=== PATIENT | female | born 1950 | race Caucasian/White ===

== ENCOUNTER 2023-09-15 12:56 | Emergency (ER) | payer OTHER, SELFPAY ==
[2023-09-15 12:59] VITALS: BP 178/102
[2023-09-15 13:49] VITALS: BP 163/87
[2023-09-15] MEDS: LR 1000 IV (13:54)
[2023-09-15] MEDS: DILAUDID 0.5 MG IV (13:54)
[2023-09-15] MEDS: ZOFRAN 4 MG IV (13:55)
--- NOTE | 2023-09-15 13:55 | ED.GENMED ---
History of Present Illness
General
Chief Complaint: Abdominal Pain
Time Seen by Provider: 09/15/23 13:19
History of Present Illness
History of Present Illness:
73-year-old female with history of hypertension, hyperlipidemia, and small bowel obstruction presents to the emergency department for right lower quadrant abdominal pain beginning this morning associated with vomiting. She did pass 2 small bowel
movements and a few episodes of gas passage but has not had anything in several hours. Feels comparable to past small bowel obstruction. Abdominal surgeries include partial left nephrectomy, and partial large bowel resection with ileostomy and
subsequent takedown.
Past History
Past History
ED Past Medical History: Fibromyalgia, GERD, HTN, Hypercholesterolemia, Psychiatric (anxiety, Depression) and Other (Sciatica, Degenerative disc disease, Sleep apnea, Diverticuliltis, Renal calculus, UTI, Uterine fibroid, Hashimotoes, Thyroiditis,
Anemia, )
ED Past Surgical History: Bowel resection (with Ileostomy and then reversal. ), Orthopedic (Joint replaced Thumb), Urological (Tumor removed left kidney, Left partial nephrectomy) and Other (diverticular abscess with drain insterted, Sinus surgery)
Social History
Tobacco: Non-smoker
Alcohol: Occasional
Personal:
Living: with family
Review of Systems
Review of Systems
Allergies reviewed?: Yes
All Other Systems: ROS reviewed and negative except as documented in HPI and ROS
Phy Exam
Physical Exam
Physical Exam:
GEN: Well appearing, NAD, WDWN
Eyes: PERRLA, EOMs intact, no scleral icterus
HENT: NCAT, oral mucosa moist
Lungs: CTAB, no wheezes, rales, rhonchi, normal chest wall excursion
Cardiac: RRR, no M/R/G, no peripheral edema. Radial pulses 2+ bilat
Abdomen: Protuberant abdomen, numerous postsurgical scars. Focal tenderness to the right lower quadrant
Neuro: AO x 3
MSK: No gross deformity or ecchymosis. No edema. No digital clubbing
Skin: No rashes, petechiae. Normal color, no pallor or jaundice.
Psych: Calm, cooperative, proper hygiene
Course
Orders/Labs/Results
Orders:
Orders
09/15/23 13:35
CT Abd/Pel (IV only)-DH only Urgent
Comment:
Reason For Exam: rlq pain
HYDROmorphone [Dilaudid] 0.5 mg IV NOW STA
Lactated Ringers [Lr] 1,000 ml IV BOLUS
Ondansetron Injectable [Zofran] 4 mg IV NOW STA
09/15/23 13:49
Complete Blood Count/With Diff Urgent
Comprehensive Metabolic Panel Urgent
Lactic Acid Urgent
Abnormal Lab Results
09/15/23
13:49
RBC 5.51 H 10^6/uL
(4.20-5.40)
MCH 26.9 L pg
(27.0-31.0)
RDW 15.2 H %
(11.5-14.5)
Absolute Neuts (auto) 7.8 H 10^3/uL
(1.4-6.5)
Neutrophils % 79.2 H %
(42.2-75.2)
Lymphocytes % 13.4 L %
(20.5-51.1)
BUN 22 H mg/dl
(7-17)
Glucose 126 H mg/dl
(70-99)
09/15/23 13:49
09/15/23 13:49
Vital Signs
Initial and Last Documented VS:
Initial Vital Signs
Temp Pulse Resp BP Pulse Ox
98.3 F 84 18 178/102 94
09/15/23 12:59 09/15/23 12:59 09/15/23 12:59 09/15/23 12:59 09/15/23 12:59
Last Documented Vital Signs
Temp Pulse Resp BP Pulse Ox
98.3 F 73 18 168/84 94
09/15/23 12:59 09/15/23 16:30 09/15/23 16:30 09/15/23 16:00 09/15/23 16:32
MDM/Problems Addressed
MDM/Problems Addressed:
Imaging reveals no evidence for bowel obstruction. Likely self-limited viral gastroenteritis with increased focal pain secondary to her prior surgical scars. She tolerated p.o. fluids at time of discharge will be discharged home with supportive
care instructions and ED return parameters discussed
*Critical Care Note
Total Time (30-74mins, 75-104mins- exclusive of procedures): Not Applicable
ED Attending Note
-
Portions of this chart may have been created with voice recognition software.� Occasional wrong word or��sound alike� substitutions may have occurred due to the inherent limitations of voice recognition software.
Discharge Plan
Departure
Patient Disposition: Home (Routine Discharge)
Date of Disposition: 09/15/23
Time of Disposition: 16:23
Patient with high blood pressure during this ER visit?: No
Discharge Problem:
Abdominal pain, lower
Instructions: Abdominal Pain
Prescriptions:
New
ondansetron 4 mg tablet,disintegrating
4 mg PO TIDPRN PRN (Reason: nausea/vomiting) Qty: 10 0RF
No Action
cetirizine 10 MG tablet
10 mg PO DAILY PRN (Reason: ALLERGIES)
atorvastatin 10 MG tablet
10 mg PO QPM
pantoprazole 40 MG tablet,delayed release (DR/EC)
40 mg PO DAILY
artificial tear([id number]) [GenTeal Tears Moderate] 15 ML drops
1 drp BOTH EYES HS
paroxetine HCl 30 MG tablet
30 mg PO DAILY
Saline Nasal 50 SPRAYS/45 ML aerosol,spray
1 sprays intranasal BID PRN (Reason: NASAL DRYNESS)
Saline for Sensitive Eyes
1 drp BOTH EYES QID PRN (Reason: DRY EYES)
famotidine 40 mg tablet
40 mg PO BID
ferrous sulfate 325 mg (65 mg iron) Tablet
325 mg PO DAILY
valsartan 320 mg tablet
320 mg PO QPM
cholecalciferol (vitamin D3) [Vitamin D3] 25 mcg (1,000 unit) Tablet
50 mcg PO DAILY
hydrochlorothiazide 12.5 mg tablet
12.5 mg PO DAILY
melatonin 5 mg Tablet
5 mg PO HS PRN (Reason: SLEEP)
Referrals:
Kate Esteban MD [Family Provider] -
Interventions
Interventions:
*Risk Screen - Suicide Last Done: 09/15/23 12:59
*General Assessment Last Done: 09/15/23 12:59
*Neglect/Abuse Screening Last Done: 09/15/23 12:59
ED- Fall Risk Assessment Last Done: 09/15/23 16:34
*ED COVID-19 Vaccine History Last Done: 09/15/23 13:26
*Nursing Disposition Last Done: 09/15/23 16:34
HT-Pdwerq-Wnwgjiedvm Assessment Last Done: 09/15/23 14:04
Discharge Date and Time
Discharge Date/Time: 09/15/23 16:35
Print Language: BENGALI
[2023-09-15 13:56] LABS: % Basophils 0.4 % (0-2); % Eosinophils 0.9 % (0-6); % Immature Granulocytes 0.2 % (0-0.5); % Lymphocytes 13.4 % (20.5-51.1); % Monocytes 5.9 % (1.7-9.3); % Neutrophils 79.2 % (42.2-75.2); Absolute Eosinophils 0.1 10^3/uL (0-0.7); Absolute Lymphocytes 1.3 10^3/uL (1.2-3.4); Absolute Monocytes 0.6 10^3/uL (0.1-0.6); Absolute Neutrophils 7.8 10^3/uL (1.4-6.5); Hematocrit 44.7 % (37.0-47.0); Hemoglobin 14.8 g/dL (12.0-16.0); Mean Corp Hgb Conc. 33.1 g/dL (33.0-37.0); Mean Corpuscular Hgb 26.9 pg (27.0-31.0); Mean Corpuscular Volume 81.1 fL (81.0-99.0); Mean Platelet Volume 9.5 fL (7.4-10.4); Nucleated Red Blood Cells % 0 %; Platelet Count 304 10^3/uL (130-400); Red Blood Cell Count 5.51 10^6/uL (4.20-5.40); Red Cell Dist. Width 15.2 % (11.5-14.5); White Blood Cell Count 9.8 10^3/uL (4.8-10.8)
[2023-09-15 14:00] VITALS: BP 150/84
[2023-09-15 14:16] LABS: Lactic Acid 1.2 mmol/L (0.7-2.0)
[2023-09-15 14:22] LABS: ALT (SGPT) 31 U/L (0-35); AST (SGOT) 34 U/L (14-36); Albumin 4.8 g/dl (3.5-5.0); Alkaline Phosphatase 114 U/L (38-126); Blood Urea Nitrogen 22 mg/dl (7-17); Calcium 9.8 mg/dl (8.4-10.2); Carbon Dioxide 24 mmol/L (22-30); Chloride 104 mmol/L (98-107); Glucose 126 mg/dl (70-99); Potassium 4.6 mmol/L (3.5-5.1); Sodium 137 mmol/L (135-145); Total Bilirubin 0.9 mg/dl (0.2-1.3); Total Protein 7.6 g/dl (6.3-8.2); eGFR 59.86
[2023-09-15 15:26] VITALS: BP 167/80
[2023-09-15 16:00] VITALS: BP 168/84
== END 2023-09-15 16:35 | disposition home or self-care (01) ==
LOC: EMR 12:56
PROVIDERS: Physician Assistant; EMERGENCY PHYSICIAN Emergency Medicine; FAMILY PHYSICIAN Family Medicine
DX: R10.31 Right lower quadrant pain (principal); I10 Essential (primary) hypertension; E78.00 Pure hypercholesterolemia, unspecified; M79.7 Fibromyalgia; K21.9 Gastro-esophageal reflux disease without esophagitis; F41.8 Other specified anxiety disorders; G47.30 Sleep apnea, unspecified; Z87.440 Personal history of urinary (tract) infections; Z87.442 Personal history of urinary calculi; Z90.5 Acquired absence of kidney
CPT/HCPCS: 99284; 96374; 96375; 74177; 80053; 83605; 85025; Q9967

== ENCOUNTER 2024-11-20 06:51 | Day surgery (SDC) | payer OTHER, SELFPAY ==
[2024-11-20] MEDS: ELIQUIS 5 MG PO (08:12)
[2024-11-20 08:20] VITALS: BMI 35.3
== END 2024-11-20 09:45 | disposition home or self-care (01) ==
LOC: CATH 06:51
PROVIDERS: ATTENDING PHYSICIAN Internal Medicine; FAMILY PHYSICIAN Family Medicine; OTHER PHYSICIAN Internal Medicine Cardiovascular Disease
DX: I48.91 Unspecified atrial fibrillation (principal); I70.0 Atherosclerosis of aorta; I08.3 Combined rheumatic disorders of mitral, aortic and tricuspid valves; R91.8 Other nonspecific abnormal finding of lung field
CPT/HCPCS: 93312; 93320; 93325; 92960; 93005

== ENCOUNTER → 2025-01-04 11:19 | Outpatient (REF) | payer OTHER, SELFPAY | LOC: RAD 11:19 | PROVIDERS: ATTENDING PHYSICIAN Urology; FAMILY PHYSICIAN Family Medicine | DX: Z87.442 Personal history of urinary calculi (principal); N28.89 Other specified disorders of kidney and ureter; C64.2 Malignant neoplasm of left kidney, except renal pelvis | CPT/HCPCS: 74178; Q9967 ==

== ENCOUNTER → 2025-01-15 07:22 | Outpatient (REF) | payer OTHER, SELFPAY ==
[2025-01-15 07:59] VITALS: BP 151/81; BP_SYST 53
[2025-01-15 08:02] LABS: INR 1.17; PT 15.0 Sec (11.4-14.6)
[2025-01-15 08:23] LABS: Glucose - Point of Care 119 mg/dl (70-99)
[2025-01-15 09:15] VITALS: BP 141/65
[2025-01-15 09:30] VITALS: BP 124/69
[2025-01-15 09:45] VITALS: BP 122/82
[2025-01-15 10:10] VITALS: BP 122/82
== END ==
LOC: RADI 07:22
PROVIDERS: ATTENDING PHYSICIAN Urology; FAMILY PHYSICIAN Family Medicine; OTHER PHYSICIAN Physician Assistant
DX: C79.89 Secondary malignant neoplasm of other specified sites (principal); Z85.528 Personal history of other malignant neoplasm of kidney; Z90.5 Acquired absence of kidney
CPT/HCPCS: 20206; 36415; 76942; 82962; 85610; 88305; 88333; 88341; 88342; 99152

== ENCOUNTER → 2025-02-08 12:22 | Outpatient (REF) | payer OTHER, SELFPAY | LOC: PET 12:22 | PROVIDERS: ATTENDING PHYSICIAN Urology | DX: C64.2 Malignant neoplasm of left kidney, except renal pelvis (principal) | CPT/HCPCS: 78815; A9552 ==